=== PATIENT | male | born 1995 | race Caucasian/White ===

== ENCOUNTER 2016-09-19 07:10 | Emergency (ER) | payer SELFPAY ==
[2016-09-19] MEDS ORDERED: Fentanyl 100 MCG/2 ML VIAL ONE ×2 (07:28→08:09)
[2016-09-19 07:47] LABS: #Basophils 0.1 thou/uL (0.0-0.2); #Eosinphils 0.3 thou/uL (0.0-0.7); #Lymphocytes 1.4 thou/uL (1.20-3.40); #Monocytes 0.5 thou/uL (0.11-0.59); #Neutrophils 3.3 thou/uL (1.40-6.50); %Basophils 1.9 % (0.0-1.0); %Eosinophils 5.1 % (0.0-10.0); %Lymphocytes 25.6 % (28.0-48.0); %Monocytes 9.1 % (0.0-4.0); Hematocrit 40.6 % (42.0-52.0); Mean Platelet Volume 7.1 fL (7.4-10.4); Red Blood Cell (RBC) Count 4.32 mill/uL (4.00-5.20); White Blood Cell (WBC) Count 5.6 thou/uL (4.8-10.8)
[2016-09-19 08:03] LABS: ALT (SGPT) 17 U/L (0-55); AST (SGOT) 43 U/L (5-34); Alkaline Phosphatase 49 U/L (Less than 750); Anion Gap 12 mmol/L (10-20); BUN (Urea Nitrogen) 15 mg/dL (8.9-20.6); Bilirubin, Total 0.2 mg/dL (0.2-1.2); Calc. Creatinine Clearance 0 mL/min (70-130); Calcium 8.8 mg/dL (7.8-10.44); Carbon Dioxide 24 mmol/L (22-29); Chloride 110 mmol/L (98-107); Estimated GFR-MDRD 89; Globulin 2.6 g/dL (2.4-3.5); Protein, Total 6.3 g/dL (6.0-8.3)
[2016-09-19] MEDS ORDERED: Sodium Chloride 0.9% 0 ML ONE (08:18)
[2016-09-19] MEDS ORDERED: ceFAZolin Sodium 1 GM VIAL ONE (08:18)
[2016-09-19] MEDS ORDERED: Sodium Chloride 0.9% 100 ML ONE (08:19)
[2016-09-19] MEDS ORDERED: Lidocaine 1% 20 ML MDV ONE ×2 (08:33→08:35)
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
[2016-09-19] MEDS ORDERED: Bacitracin Zinc 1 Packet ONE (09:10)
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
== END 2016-09-19 10:00 | disposition home or self-care (01) ==
LOC: NAV ERS 07:10
DX: S01.81XA Laceration without foreign body of other part of head, initial encounter (principal); S01.511A Laceration without foreign body of lip, initial encounter; F17.210 Nicotine dependence, cigarettes, uncomplicated; F31.9 Bipolar disorder, unspecified; V89.2XXA Person injured in unspecified motor-vehicle accident, traffic, initial encounter
CPT/HCPCS: 12053; 70450; 70486; 71020; 72125; 80053; 85025; 96365; 96375; 96376; J0690; J2001; J3010; J7050